=== PATIENT | female | born 1960 | race Caucasian/White ===

== ENCOUNTER → 2023-11-12 09:54 | Outpatient (REF) | payer BC, SELFPAY | LOC: HWRCS 09:54 | PROVIDERS: ATTENDING PHYSICIAN Family Medicine | DX: I70.0 Atherosclerosis of aorta (principal) | CPT/HCPCS: 93306 ==

== ENCOUNTER → 2024-02-02 07:50 | Outpatient (REF) | payer BC, SELFPAY | LOC: HWRAD 07:50 | PROVIDERS: ATTENDING PHYSICIAN Surgery; FAMILY PHYSICIAN Family Medicine | DX: K43.9 Ventral hernia without obstruction or gangrene (principal); M62.08 Separation of muscle (nontraumatic), other site | CPT/HCPCS: 74177; Q9967 ==

== ENCOUNTER → 2024-03-07 07:59 | Outpatient (REF) | payer BC, SELFPAY | LOC: HWWDC 07:59 | PROVIDERS: ATTENDING PHYSICIAN Family Medicine | DX: Z12.31 Encounter for screening mammogram for malignant neoplasm of breast (principal) | CPT/HCPCS: 77063; 77067 ==

== ENCOUNTER 2024-03-13 06:35 | Day surgery (SDC) | payer BC, SELFPAY ==
[2024-03-13] VITALS (8 sets, daily range): BP systolic 131–153; BP diastolic 71–90; BMI 27.0
--- NOTE | 2024-03-13 09:18 | HP.FOC2 ---
Focused History & Physical
Chief Complaint
HPI:
Chief Complaint: Recurrent umbilical/ventral hernia
HPI / Indication for Planned Procedure: Patient is a 63-year-old female with a previous abdominal surgical history including laparoscopic NISA/BSO, right ureterolysis, umbilical herniorrhaphy x 2 (primary suture repair) and . Recently seen
in outpatient surgical evaluation secondary to a longstanding history of a sensation of discomfort and weakness in her abdominal wall both centrally and just a bit above into the right of her umbilicus. There is a generalized swelling and more
focal area of protrusion from time to time. Physical examination confirmed the presence of a ventral hernia just superior to the umbilical stalk and slightly towards the right of midline. Subsequent CT imaging confirmed the presence of an
umbilical and ventral hernia just above it superimposed within diastasis. Patient presents today for scheduled operative correction of her recurrent hernias.
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
Relevant Social History: Negative
Relevant Family History: Negative
Relevant Past Surgical History: Positive for (Laparoscopic NISA and BSO, umbilical hernia pair x 2, right ureterolysis, )
Review of Systems
Review of Pertinent Systems: All Systems Negative
Medication
See Medication form for detailed medications: Yes
Medication List (including Herbals & OTC):
calcium 200 mg (as citrate)-vitamin D3 6.25 mcg (250 unit) tablet (Citracal-D3 Petites) 2 tab PO NOON 03/09/24
cholecalciferol (vitamin D3) 25 mcg (1,000 unit) tablet (Vitamin D3) 25 mcg PO HS 03/09/24
cholecalciferol (vitamin D3) 25 mcg (1,000 unit) tablet (Vitamin D3) 50 mcg PO DAILY 03/09/24
ketotifen fumarate 0.025 % (0.035 %) eye drops 1 drp ophthalmic (eye) DAILY 03/09/24
[id number] 8 mg-folic 400 mcg-K 50 mcg-lutein 300 mcg tablet (Centrum Silver Women) 1 tab PO HS 03/09/24
Medications Reviewed: Yes
Allergies and Reactions
Patient has Allergies: No
Noted Allergies and Reactions:
Allergy/AdvReac Type Severity Reaction Status Date / Time
No Known Allergies Allergy Verified 03/09/24 13:15
Pertinent Physical Exam
All Other Systems: Negative
Head/Neck: Normal
Lungs: Normal
Heart: Normal
Abdomen: Other (Central abdominal wall diastasis with superimposed ventral/umbilical hernias.)
Extremities: Normal
Neurological: Normal
Diagnosis / Assessment
63-year-old female presenting for scheduled operative correction symptomatic recurrent umbilical and ventral hernias.
Plan / Procedure
Robotic assisted laparoscopic repair umbilical/ventral hernia with mesh
Anesthesia/Sedation to be done by Anesthesia Provider: Yes
[2024-03-13] MEDS: NORMOSOL-R/PLASMALYTE-A 1000 IV (11:16)
[2024-03-13] MEDS: TYLENOL 1000 MG PO (11:16)
--- NOTE | 2024-03-13 11:20 | W.SUR.PREOP ---
Pre-Operative Surgical Note
-
I have examined this patient prior to the performance of the scheduled procedure.
The patient's condition is unchanged from the time of the current History and
Physical and the patient is able to undergo the scheduled procedure.
--- NOTE | 2024-03-13 14:09 | W.IMMPOSTOP ---
Addendum entered and electronically signed by Imer Perla MD 03/13/24 14:24:
#[id number]
Original Note:
Surgical Immed Post Op Note
-
Primary Surgeon: Minda
Assisting Surgeon: Catalina Gipson PA-C
Pre-op Diagnosis: Recurrent umbilical hernia, ventral hernia
Post-op Diagnosis: Recurrent umbilical hernia, ventral hernia x 2 (4 cm total length fascial defects)
Procedure Performed: Robotic assisted laparoscopic JASON repair recurrent umbilical hernia/ventral hernias with mesh (soft mesh 15 cm x 10 cm)
Anesthesia Type: GETA +0.25% Marcaine with epi
Specimen / Cultures: None
Estimated Blood Loss: 8 mL
Complications: None immediate
Operative Findings: Recurrent umbilical hernia 3 cm x 2 cm; 2 additional 1.5 cm ventral hernia defects superior to the umbilical hernia recurrence. Transabdominal preperitoneal repair with reduction of hernia sac and preperitoneal fat. Each hernia
defect closed with 0 PDS STRATAFIX symmetric suture. Total vertical length of fascial defects including small fascial bridges 4 cm long. Underlay preperitoneal mesh repair -Bard soft mesh 15 cm x 10 cm oriented vertically and secured with numerous
interrupted 2-0 Vicryl suture to linea alba centrally and posterior sheath around peripherally. Peritoneal flap closed with 2-0 Monocryl STRATAFIX spiral.
The assistance of Catalina Gipson PA-C was required due to the complexity of the procedure. During the procedure Catalina Gipson PA-C assisted with port placement, robotic instrumentation and suture material exchanges, and closure of the surgical incision
sites. I was present for the entirety of the operative procedure.
== END 2024-03-13 16:12 | disposition home or self-care (01) ==
LOC: SDS 06:35
PROVIDERS: ATTENDING PHYSICIAN Surgery
DX: K42.9 Umbilical hernia without obstruction or gangrene (principal); K43.9 Ventral hernia without obstruction or gangrene
CPT/HCPCS: 49520; 49615; C1781